=== PATIENT | female | born 1980 | race Two or more races ===

== ENCOUNTER 2024-12-29 06:38 | Day surgery (SDC) | payer OTHER, SELFPAY | END 2024-12-29 11:07 | disposition home or self-care (01) | LOC: GI 06:38 | PROVIDERS: ATTENDING PHYSICIAN Internal Medicine | DX: Z12.11 Encounter for screening for malignant neoplasm of colon (principal); K57.30 Diverticulosis of large intestine without perforation or abscess without bleeding; K64.8 Other hemorrhoids; D12.3 Benign neoplasm of transverse colon; D12.0 Benign neoplasm of cecum | CPT/HCPCS: 45385; 45380; 88305 ==